=== PATIENT | male | born 1980 | race Caucasian/White ===

== ENCOUNTER 2024-01-10 11:15 | Emergency (ER) | payer MEDICAID ==
[~2024-01-10] VITALS: Ht 165.1 cm; Wt 73.0 kg
[2024-01-10 11:23] VITALS: O2SAT 100
[2024-01-10] MEDS ORDERED: LIDOCAINE HCL 1% 20ML VIAL INFIL ONE (12:45)
[2024-01-10] MEDS ORDERED: AMOX1TAB16 MT (13:51)
[2024-01-10 14:16] VITALS: BP 130/82; PULSE 78; RESP 18; TEMP 36.89184; O2SAT 98
[2024-01-10 16:10] LABS: BODY FLUID MONOCYTES 7 %; BODY FLUID RBC 14375 /cu mm (0-2000); BODY FLUID WBC 8460 /cu mm (0-200)
== END 2024-01-10 14:18 | disposition home or self-care (01) ==
LOC: ER 11:15
DX: S20.211A Contusion of right front wall of thorax, initial encounter (principal); S50.312A Abrasion of left elbow, initial encounter; M70.32 Other bursitis of elbow, left elbow; X58.XXXA Exposure to other specified factors, initial encounter; Y93.89 Activity, other specified; Y92.89 Other specified places as the place of occurrence of the external cause; Y99.8 Other external cause status
CPT/HCPCS: 10060; 71045; 71100; 73080; 87077; 87186; 99284

== ENCOUNTER 2024-01-14 11:49 | Emergency (ER) | payer MEDICAID ==
[~2024-01-14] VITALS: Ht 160 cm; Wt 70.0 kg
[~2024-01-14 11:49] MED LIST: AMOX1TAB16 MT
[2024-01-14 11:54] VITALS: O2SAT 96
[2024-01-14 14:30] VITALS: BP 118/60; PULSE 80; RESP 18; TEMP 36.89184; O2SAT 96
== END 2024-01-14 14:30 | disposition home or self-care (01) ==
LOC: ER 12:26
DX: B34.9 Viral infection, unspecified (principal)
CPT/HCPCS: 99281